=== PATIENT | female | born 1955 | race Caucasian/White ===

== ENCOUNTER 2017-10-04 05:57 | Emergency (ER) | payer OTHER ==
[~2017-10-04] VITALS: Ht 167.6 cm; Wt 73.3 kg
[~2017-10-04 05:57] MED LIST: ALBU8.5H5 INH; AMIO200T PO; ASPI-664 PO; CARV3.12 PO; LISI-523 PO; LORA10CA PO
[2017-10-04 06:03] VITALS: Ht 167.6 cm; Wt 73.3 kg
[2017-10-04] MEDS ORDERED: KETOROLAC 15 MG INJ IV STA (06:55)
[2017-10-04] MEDS ORDERED: ONDANSETRON 4 MG INJ IV STA (06:55)
[2017-10-04 07:20] LABS: ABNORMAL IP MESSAGE 1; BASOPHIL # 0.1 10^3/ul (0.0-0.1); BASOPHILS % 0.5 % (0.0-2.0); EOSINOPHILS % 0.1 % (0.0-7.0); HEMATOCRIT 37.5 % (37.0-47.0); HEMOGLOBIN 11.4 g/dl (12.0-16.0); LYMPHOCYTES # 1.5 10^3/ul (0.8-2.9); LYMPHOCYTES % 15.7 % (15.0-51.0); MEAN CORPUSCULAR HEMOGLOBIN 21.3 pg (29.0-33.0); MEAN CORPUSCULAR HGB CONC 30.4 g/dl (32.0-37.0); MEAN CORPUSCULAR VOLUME 70.1 fl (82.0-101.0); MEAN PLATELET VOLUME 12.1 fl (7.4-10.4); MONOCYTE # 0.1 10^3/ul (0.3-0.9); MONOCYTES % 1.3 % (0.0-11.0); NEUTROPHILS % 81.7 % (39.0-77.0); PLATELET COUNT 258 10^3/UL (140-415); RED BLOOD COUNT 5.35 10^6/ul (4.20-5.40); RED CELL DISTRIBUTION WIDTH 15.7 % (11.5-14.5); WHITE BLOOD COUNT 9.8 10^3/ul (4.8-10.8)
[2017-10-04 07:23] LABS: POSITIVE DIFF @See below
--- NOTE | 2017-10-04 07:36 | RADRPT ---
PROCEDURE: US Abdomen. CLINICAL INDICATION: Abdominal Pain TECHNIQUE: Multiple real-time images were acquired of the patient's abdomen and retroperitoneum ut ilizing a high resolution transducer. COMPARISON: None FINDINGS: The gallbladder is well visualized with multiple gallstones. Gallbladder wall is thickened with a ma ximal transverse diameter of 3.64 mm. No pericholecystic fluid. Rule out acute calculus cholecystiti s. Common bile duct is normal limits in size measuring 3.59 mm. No evidence of intrapelvic biliary d uctal dilation. The liver is normal in size without focal lesions. Normal hepato pedal flow those po rtions the pancreas visualized are unremarkable. Right kidney measures 9.05 x 4.24 x 3.8 a centimete rs without intra renal mass or hydronephrosis. Renal parenchymal echogenicity is unremarkable. No fr ee fluid in the right upper on the. IMPRESSION: 1. Multiple gallstones with gallbladder wall thickening and rule out acute calculus cholecystitis. 2. No evidence biliary ductal dilation. 3. No evidence of right hydronephrosis. RPTAT:AAJJ Physician Chiki Date Time Electronically viewed and signed by Physician Chiki on 10/04/2017 07:35 BM/
[2017-10-04 08:42] LABS: ALBUMIN 4.3 g/dl (3.3-4.9); ALBUMIN/GLOBULIN RATIO 1.02; BILIRUBIN,INDIRECT 0.2 mg/dl (0-1.1); BILIRUBIN,TOTAL 0.2 mg/dl (0.2-1.3); CALCIUM 9.4 mg/dl (8.4-10.2); CREATININE 0.91 mg/dl (0.44-1.00); POTASSIUM 3.6 mmol/L (3.5-5.1); TOTAL PROTEIN 8.5 g/dl (6.1-8.1)
[2017-10-04] MEDS ORDERED: PIPER-TAZO 3.375 GM IV (PMX) 50 ML IV ONE (09:00)
[2017-10-04 09:07] LABS: ADD UMIC YES; UR ASCORBIC ACID NEGATIVE (NEGATIVE); UR BILIRUBIN (Dip) NEGATIVE (NEGATIVE); UR BLOOD (Dip) NEGATIVE (NEGATIVE); UR CLARITY CLEAR (CLEAR); UR COLOR STRAW (YELLOW); UR GLUCOSE (Dip) 3+ mg/dL (NEGATIVE); UR KETONES (Dip) TRACE mg/dL (NEGATIVE); UR LEUKOCYTE ESTERASE (Dip) NEGATIVE Leu/ul (NEGATIVE); UR NITRITE (Dip) NEGATIVE (NEGATIVE); UR RBC 0 /HPF (0-5); UR SPECIFIC GRAVITY (Dip) 1.012 (1.003-1.030); UR TOTAL PROTEIN (Dip) 1+ mg/dl (NEGATIVE); UR UROBILINOGEN (Dip) NEGATIVE (NEGATIVE)
[2017-10-04] MEDS ORDERED: CEPH-443 PO (09:16)
[2017-10-04] MEDS ORDERED: ONDA4TAB14 PO (09:16)
--- NOTE | 2017-10-04 09:19 | ERD ---
ER Documentation Chief Complaint Chief Complaint RUQ abd pain since 2 hours ago HPI 62-year-old female presents the emergency department with her sister for evaluation of abdominal pain. Patient states she has had intermittent on and off right upper quadrant abdominal pain for months now. Over the last 2-3 days, this is gotten slightly more frequent and over the last 2 hours this got slightly worse. Her pain is non-provoked and isolated to her right upper quadrant. She reports no fevers, chills, vomiting. She reports no urinary or gynecologic symptoms. She currently reports the pain is mild to moderate. ROS All systems reviewed and are negative except as per history of present illness. Medications Home Meds Active Scripts Ondansetron (Ondansetron Odt) 4 Mg Tab.rapdis, 4 MG PO Q6H Y for NAUSEA AND/OR VOMITING, #10 TAB Prov:SAADIA PROCTOR 10/04/17 Cephalexin* (Keflex*) 500 Mg Capsule, 500 MG PO QID for 7 Days, #28 CAP Prov:SAADIA PROCTOR 10/04/17 Lisinopril* (Zestril*) 5 Mg Tab, 2.5 MG PO BID for 30 Days Prov:MATT HARTLEY NP 06/21/15 Carvedilol* (Coreg*) 3.125 Mg Tab, 3.125 MG PO BID for 30 Days Prov:MATT HARTLEY NP 06/21/15 Aspirin* (Aspirin* EC) 81 Mg Tabec, 81 MG PO DAILY for 30 Days Prov:MATT HARTLEY NP 06/21/15 Amiodarone Hcl* (Amiodarone Hcl*) 200 Mg Tab, 200 MG PO BID for 30 Days Prov:MATT HARTLEY NP 06/21/15 Albuterol Sulfate* (Albuterol Sulfate* HFA) 8.5 Gm Hfa.aer.ad, 1-2 PUFF INH Q4 Y for SHORTNESS OF BREATH, #1 EA Prov:GONZÁLEZ CAIN DO 06/15/15 Reported Medications Loratadine* (Claritin*) 10 Mg Capsule, 10 MG PO DAILY, CAP 06/15/15 Allergies Allergies: Coded Allergies: No Known Allergy (Unverified , 06/15/15) PMhx/Soc History of Surgery: Yes (, STENT PLACEMENT) Anesthesia Reaction: No Hx Neurological Disorder: No Hx Respiratory Disorders: Yes (ASTHMA) Hx Cardiac Disorders: Yes (HTN) Hx Psychiatric Problems: No Hx Miscellaneous Medical Probl: No Hx Alcohol Use: No Hx Substance Use: No Hx Tobacco Use: No Smoking Status: Never smoker FmHx Noncontributory for chief complaint with supportive sister at bedside Physical Exam Vitals Vital Signs Date Time Temp Pulse Resp B/P Pulse Ox O2 Delivery O2 Flow Rate FiO2 10/04/17 06:03 98.3 56 20 184/77 100 Physical Exam GENERAL: The patient is well developed and appropriate for usual state of health in no apparent distress HEENT: Pupils equal, round, and reactive to light. EOMI. There is no scleral icterus. NECK: C-spine is soft and supple, there is no meningismus. There is no cervical lymphadenopathy. LUNGS: Clear to auscultation bilaterally. There are no rales, wheezes or rhonchi. HEART: Regular rate and rhythm, no murmurs, clicks, rubs or gallops. ABDOMEN: Soft, non-tender, non-distended. There are bowel sounds in all four quadrants. No rebound or guarding. No Mills sign EXTREMITIES: There is no peripheral cyanosis or edema. No focal swelling or erythema. NEURO: The patient moves all four extremities with 5/5 strength. Cranial nerves II - XII are intact. Normal gait. Alert and oriented SKIN: There is no apparent rash or petechiae. HEME/LYMPHATIC: There is no evidence of excessive bruising or lymphedema. PSYCHIATRIC: The patient does not appear anxious or depressed. Result Diagram: 10/04/17 0700 10/04/17 0803 Results 24 hrs Laboratory Tests Test 10/04/17 07:00 10/04/17 08:03 10/04/17 08:30 White Blood Count 9.810^3/ul Red Blood Count 5.3510^6/ul Hemoglobin 11.4g/dl Hematocrit 37.5% Mean Corpuscular Volume 70.1fl Mean Corpuscular Hemoglobin 21.3pg Mean Corpuscular Hemoglobin Concent 30.4g/dl Red Cell Distribution Width 15.7% Platelet Count 41239^3/UL Mean Platelet Volume 12.1fl Neutrophils % 81.7% Lymphocytes % 15.7% Monocytes % 1.3% Eosinophils % 0.1% Basophils % 0.5% Nucleated Red Blood Cells % 0.0/100WBC Neutrophils # 8.010^3/ul Lymphocytes # 1.510^3/ul Monocytes # 0.110^3/ul Eosinophils # 0.010^3/ul Basophils # 0.110^3/ul Nucleated Red Blood Cells # 0.010^3/ul Sodium Level 144mmol/L Potassium Level 3.6mmol/L Chloride Level 102mmol/L Carbon Dioxide Level 28mmol/L Anion Gap 18 Blood Urea Nitrogen 12mg/dl Creatinine 0.91mg/dl Glucose Level 175mg/dl Calcium Level 9.4mg/dl Total Bilirubin 0.2mg/dl Direct Bilirubin 0.00mg/dl Indirect Bilirubin 0.2mg/dl Aspartate Amino Transf (AST/SGOT) 34IU/L Alanine Aminotransferase (ALT/SGPT) 43IU/L Alkaline Phosphatase 102IU/L Total Protein 8.5g/dl Albumin 4.3g/dl Globulin 4.20g/dl Albumin/Globulin Ratio 1.02 Lipase 84U/L Urine Color STRAW Urine Clarity CLEAR Urine pH 7.0 Urine Specific [place] 1.012 Urine Ketones TRACEmg/dL Urine Nitrite NEGATIVEmg/dL Urine Bilirubin NEGATIVEmg/dL Urine Urobilinogen NEGATIVEmg/dL Urine Leukocyte Esterase NEGATIVELeu/ul Urine Microscopic RBC 0/HPF Urine Microscopic WBC 1/HPF Urine Hemoglobin NEGATIVEmg/dL Urine Glucose 3+mg/dL Urine Total Protein 1+mg/dl Current Medications Medications (Trade) Dose Ordered Sig/Nitesh Route PRN Reason Start Time Stop Time Status Last Admin Dose Admin Ondansetron HCl (Zofran Inj) 4 mg ONCE STAT IV 10/04/17 06:55 10/04/17 06:56 DC 10/04/17 07:13 Ketorolac Tromethamine 15 mg 15 mg ONCE STAT IV 10/04/17 06:55 10/04/17 06:56 DC 10/04/17 07:13 Piperacillin Sod/ Tazobactam Sod (Zosyn 3.375gm/ 50 ml (Pmx)) 50 ml @ 100 mls/hr ONCE ONCE IV 10/04/17 09:00 10/04/17 09:29 10/04/17 09:13 Procedures/MDM Patient was taken to a room, seen and evaluated. Comfort measures were initiated. Diagnostic tests were ordered and reviewed. RADIOLOGY: reviewed with the radiologist REEVALUATION: Abdominal examination remained benign and the patient appeared comfortable. Diagnostic tests were discussed with both the patient and her sister, and they wish to have outpatient follow-up instead of inpatient evaluation and observation MEDICAL DECISION MAKING: Patient presents with abdominal pain of uncertain etiology. Differential diagnosis considered includes appendicitis, diverticulitis, cholecystitis and other intra-abdominal medical and surgical concerns. I have reviewed the patient's lab studies and imaging as well as multiple examinations of the abdomen. At this time, patient shows clinical evidence on ultrasound of cholecystitis, but a normal white count, afebrile and no evidence of obstruction. Her pain is completely resolved. After antibiotic therapy in the emergency department, she appears clinically well and completely nontoxic and appears appropriate for outpatient care. Departure Diagnosis: Primary Impression: Cholecystitis Condition: Stable Patient Instructions: Cholecystitis, Confirmed Additional Instructions: See your doctor for follow-up as discussed. Take a copy of your test results, if appropriate, to this follow-up visit. See your doctor or return here if your symptoms do not improve as expected. At any time, please return to the emergency department for any change or worsening in her symptoms. SAADIA PROCTOR Oct 04, 2017 09:18
[2017-10-04 10:20] VITALS: BP 156/78; PULSE 61; RESP 17; TEMP 98.2
[2017-10-04 10:30] LABS: ANISOCYTOSIS 1+ (0-0); EOSINOPHILS % (M) 2 % (0-7); GIANT THROMBO% (M) 1 % (0-0); HYPOCHROMASIA 2+ (0-0); MICROCYTOSIS 1+ (0-0); MONOCYTES % (M) 3 % (0-11); PLATELET ESTIMATE NORMAL; POIKILOCYTOSIS 2+ (0-0); POLYCHROMASIA 3+ (0-0); REACTIVE LYMPHOCYTES% (M) 6 % (0-0)
== END 2017-10-04 10:22 | disposition home or self-care (01) ==
LOC: E/R 05:57
DX: K81.9 Cholecystitis, unspecified (principal); I10 Essential (primary) hypertension; J45.909 Unspecified asthma, uncomplicated; Z98.61 Coronary angioplasty status; Z79.82 Long term (current) use of aspirin
CPT/HCPCS: 36415; 76705; 80053; 81001; 83690; 85025; 96374; 96375; J1885; J2405; J2543; Z7502

== ENCOUNTER 2018-06-15 03:20 | Inpatient (IN) | END 2018-06-17 20:35 | disposition short-term general hospital (02) | DRG 439 ==